=== PATIENT | female | born 1950 | race Caucasian/White ===

== ENCOUNTER → 2018-11-11 | Outpatient (CLI) | payer MEDICARE, OTHER ==
[~2018-11-11] MED LIST: CIPR500 PO; COLE625 PO; CYCL10; CYCL10 PO; DIAZ5 PO; DIPATR PO; ELIQUIS5 MG PO; HYDACE10B PO; HYDACE5 PO; HYDACE7.5 PO; HYDMOR2 PO; HYOS.125 SL; IBUPROFEN200 MG PO; LOPE2C; METR500 PO; MYLANTA; ONDA4 PO; PENACE; PROM25 PO; PROM25S PR; RXDIPATR PO; RXHYDMOR2 PO; RXHYOS.125 PO; RXONDA4ODT MM; SULTRISS
== END ==
LOC: LAB SHORT 10:02 → PLD 10:02
DX: N93.8 Other specified abnormal uterine and vaginal bleeding (principal)
CPT/HCPCS: 88305

== ENCOUNTER 2021-10-30 17:53 | Observation (INO) | payer MEDICARE ==
[~2021-10-30] VITALS: Ht 172.7 cm; Wt 76.7 kg
[~2021-10-30 17:53] MED LIST changes: +IBUP200 PO; -IBUPROFEN200 MG PO; +LOW DOSE ASPIRI81 M1 PO
[2021-10-30] MEDS ORDERED: CENTRUM SILVER1 EAC2 PO (20:42)
[2021-10-30 23:01] LABS: BASOPHILS ABSOLUTE AUTO 0.05 K/mm3 (0.00-0.23); BASOPHILS PERCENT AUTO 1 % (0-2); EOSINOPHILS ABSOLUTE AUTO 0.07 K/mm3 (0.00-0.68); EOSINOPHILS PERCENT AUTO 1 % (0-6); Hematocrit 38.2 % (33.0-51.0); Hemoglobin 12.7 g/dL (11.5-16.0); IMMATURE GRAN ABSOLUTE AUTO 0.01 K/mm3 (0.00-0.10); IMMATURE GRAN PERCENT AUTO 0 % (0-1); LYMPHOCYTES ABSOLUTE AUTO 2.18 K/mm3 (0.84-5.20); LYMPHOCYTES PERCENT AUTO 29 % (21-46); MONOCYTES ABSOLUTE AUTO 0.62 K/mm3 (0.16-1.47); MONOCYTES PERCENT AUTO 8 % (4-13); Mean Corpuscular HGB 33.6 pg (26.0-34.0); Mean Corpuscular HGB Conc 33.2 g/dL (31.5-36.5); Mean Corpuscular Volume 101 fL (80-100); Mean Platelet Volume 12.1 fL (9.1-12.4); NEUTROPHILS ABSOLUTE AUTO 4.68 K/mm3 (1.96-9.15); NEUTROPHILS PERCENT AUTO 62 % (41-73); Platelet Count 301 K/mm3 (150-400); RDW Coefficient Variation 14.6 % (11.7-14.2); RDW Standard Deviation 54.8 fL (35.1-46.3); Red Blood Cell Count 3.78 M/mm3 (3.80-5.20); White Blood Cell Count 7.61 K/mm3 (4.00-11.30)
[2021-10-30 23:14] LABS: Albumin, Blood 3.7 g/dL (3.4-5.0); Bilirubin, Total 0.2 mg/dL (0.1-1.0); Bun/Creatinine Ratio 17.1 (12.0-20.0); Calcium, Blood 9.5 mg/dL (8.5-10.1); Creatinine, Blood 1.11 mg/dL (0.40-1.00); Globulin, Blood 3.6 g/dL (2.2-4.0); Potassium, Blood 4.3 mmol/L (3.5-5.5); Total Protein, Blood 7.3 g/dL (6.4-8.2)
--- NOTE | 2021-10-31 02:50 | NUR ---
ASSUMED CARE AT 0032. PT IS A NEW ADMISSION FROM THE ED, DX: RECURRENT PNEUMOTHORAX. PT ARRIVED VIA STRETCHER AMD WAS ABLE TO ABLE TO THE BED WITH STAND BY ASSIST. PT AAOX4, ABLE TO MAKE HER NEEDS KNOWN. ON ROOM AIR, O2 SAT 100%. RIGHT ANTERIOR UPPER CHEST WITH THORA-VENT. PT C/O PAIN TO RIGHT CHEST THORA-VENT INSERTION SITE AND RIGHT SIDE OF BACK. MEDICATED PER EMAR WITH PRN TORADOL-PT CURRENTLY RESTING IN BED WITH HER EYES CLOSED. NO SIGNS OF DISTRESS. PT WAS ORIENTED TO HER ROOM AND CALL LIGHT FUNCTIONS. BED IN LOWEST POSITION WITH THE CALL LIGHT WITHIN EASY REACH. WILL CONTINUE TO MONITOR.
--- NOTE | 2021-10-31 06:15 | NUR ---
PT OFF THE FLOOR VIA WHHELCHAIR ACCOMPANIED BY ONE MALE ATTENDANT TO GET 2 VIEW CHEST XRAY. LEFT IN STABLE CONDITION AT 0615.
--- NOTE | 2021-10-31 07:26 | NUR ---
SHIFT SUMMARY NO CHANGES IN PT CONDITION. NO COMPLAINTS VOICED. PT RESTED IN BED WITH HER EYES CLOSED. REMAINS ON ROOM AIR, O2 SATS >97%. BED IN LOW POSITION WITH THE CALL LIGHT WITHIN EASY REACH.
--- NOTE | 2021-10-31 17:07 | NUR ---
SUMMARY PT SITTING UP IN BED WATCHING TV, PT HAS BEEN INDEPENDENT IN THE ROOM, MED PER EMAR FOR PAIN OF THE R CHEST WALL AT THORA VENT SITE, PULM CONSULTED AND PT SEEN BY DR MALAVE, POSSIBLE DC IN AM WITH THORA VENT IN PLACE, PT'S FAMILY HAS BEEN IN TO VISIT, VSS, NO COMPLAINTS, WILL CONT TO MONITOR
--- NOTE | 2021-11-01 05:51 | NUR ---
SHIFT SUMMARY ASSUMED CARE AT 1900. NO ACUTE EVENTS DURING THE SHIFT. MN REMAINS ON ROOM AIR, O2 SATS 98-99%. MEDICATED ONCE FOR C/O RIGHT SIDED BACK PAIN WITH PRN TORADOL 15MG IV WITH GOOD EFFECT. RIGHT ANTERIOR UPPER CHEST WITH THORA-VENT, ADHESIVES INTACT. BREATH SOUNDS REMAIN CLEAR. NO COUGHING NOTED. REPEAT 2 VIEW CHEST X-RAY PENDING COMPLETION THIS MORNING. PT UPDATED ON THE PLAN OF CARE AND EXPRESSED HER UNDERSTANDING. BED IS IN LOW POSITION WITH THE CALL LIGHT WITHIN EASY REACH. WILL CONTINUE TO MONITOR.
== END 2021-11-01 15:14 | disposition home or self-care (01) ==
LOC: ER 17:53 → MEDS 17:54
PROVIDERS: Family Medicine; ADMIT Internal Medicine
DX: J93.9 Pneumothorax, unspecified (principal); F17.210 Nicotine dependence, cigarettes, uncomplicated; J43.9 Emphysema, unspecified; K58.9 Irritable bowel syndrome, unspecified; M54.9 Dorsalgia, unspecified; R91.8 Other nonspecific abnormal finding of lung field; Z85.89 Personal history of malignant neoplasm of other organs and systems; Z88.5 Allergy status to narcotic agent; Z88.0 Allergy status to penicillin; Z88.2 Allergy status to sulfonamides; Z88.8 Allergy status to other drugs, medicaments and biological substances; Z91.048 Other nonmedicinal substance allergy status
CPT/HCPCS: 32551; 36415; 71045; 71046; 80053; 85025; 96372; 96374; 96375; 96376; 99285-25; A9270; G0378; J1650; J1885; J2270; J3010

== ENCOUNTER → 2023-01-20 | Outpatient (CLI) | payer MEDICARE ==
[~2023-01-20] MED LIST changes: +CENTRUM SILVER1 EAC2 PO
== END | disposition home or self-care (01) ==
LOC: LAB SHORT 08:02 → LAB 08:02 → LAB FUT 01-16 13:40
DX: R19.09 Other intra-abdominal and pelvic swelling, mass and lump (principal)
CPT/HCPCS: 81050

== ENCOUNTER → 2023-12-11 | Outpatient (CLI) | payer MEDICARE ==
[2023-12-13 20:56] LABS: CREATININE,URINE - PER 24H 950 mg/d (500-1400); CREATININE,URINE - PER VOLUME 38 mg/dL; HOURS COLLECTED 24 hr; METANEPHRINE,UR - RATIO TO CRT 116 ug/g CRT (0-300); METANEPHRINE,URINE - PER 24H 110 ug/d (36-229); METANEPHRINE,URN - PER VOLUME 44 ug/L; NORMETANEPHRINE,U - PER VOLUME 230 ug/L; NORMETANEPHRINE,URN - PER 24H 575 ug/d (95-650); NORMETANEPHRINE,URN/CRT RATIO 605 ug/g CRT (0-400); TOTAL VOLUME 2500 mL
== END ==
LOC: LAB 09:00 → LAB SHORT 09:00
PROVIDERS: Surgery
DX: D44.7 Neoplasm of uncertain behavior of aortic body and other paraganglia (principal)
CPT/HCPCS: 81050; 83835

== ENCOUNTER → 2025-06-10 | Outpatient (CLI) | payer MEDICARE ==
[~2025-06-10] MED LIST changes: +LOSA25 PO
[2025-06-15 09:00] LABS: CREATININE,URINE - PER 24H 943 mg/d (500-1400); CREATININE,URINE - PER VOLUME 41 mg/dL; HOURS COLLECTED 24 hr; METANEPHRINE,UR - RATIO TO CRT 122 ug/g CRT (0-300); METANEPHRINE,URINE - PER 24H 115 ug/d (36-229); METANEPHRINE,URN - PER VOLUME 50 ug/L; NORMETANEPHRINE,U - PER VOLUME 256 ug/L; NORMETANEPHRINE,URN - PER 24H 589 ug/d (95-650); NORMETANEPHRINE,URN/CRT RATIO 624 ug/g CRT (0-400)
== END | disposition home or self-care (01) ==
LOC: LAB 08:08 → LAB SHORT 08:08
PROVIDERS: Legal Medicine
DX: R19.09 Other intra-abdominal and pelvic swelling, mass and lump (principal)
CPT/HCPCS: 83835